=== PATIENT | male | born 1970 | race African-American/Black ===

== ENCOUNTER 2016-10-18 02:19 | Emergency (ER) | payer MEDICAID, MEDICARE ==
[~2016-10-18] VITALS: Ht 177.8 cm; Wt 91.0 kg
[2016-10-18] MEDS ORDERED: ACETAMINOPHEN 500MG TABLET PO ONE (06:15)
[2016-10-18 09:50] VITALS: BP 145/78
== END 2016-10-18 10:07 | disposition home or self-care (01) ==
LOC: ER 02:20
DX: S22.42XA Multiple fractures of ribs, left side, initial encounter for closed fracture (principal); Z88.6 Allergy status to analgesic agent; F17.200 Nicotine dependence, unspecified, uncomplicated; F14.10 Cocaine abuse, uncomplicated; Y09 Assault by unspecified means; Y99.9 Unspecified external cause status; Y92.89 Other specified places as the place of occurrence of the external cause
CPT/HCPCS: 71111; 99284